=== PATIENT | male | born 1940 | race Caucasian/White ===

== ENCOUNTER 2017-03-18 11:47 | Outpatient (CLI) | payer MEDICARE ==
[2017-03-18 13:32] LABS: INR 2.24 (0.87-1.13); PROTHROMBIN TIME 23.5 SECS (9.5-12.7)
== END 2017-03-18 23:59 | disposition home or self-care (01) ==
LOC: LAB 11:47
DX: Z79.01 Long term (current) use of anticoagulants (principal)
CPT/HCPCS: 36415; 85610-TC

== ENCOUNTER 2019-05-29 18:18 | Emergency (ER) | payer MEDICARE ==
[~2019-05-29] VITALS: Ht 170.2 cm; Wt 81.2 kg
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
[2019-05-29 18:44] LABS: BASOPHILS # (AUTO) 0.1 /CMM (0.0-0.2); BASOPHILS % (AUTO) 1.8 % (0.0-2.0); EOSINOPHILS % (AUTO) 3.1 % (0.0-6.0); HEMATOCRIT 44 % (39-51); LYMPHOCYTES # (AUTO) 1.7 /CMM (0.8-4.8); MEAN CORPUSCULAR HGB CONC 34 g/dl (31.0-36.0); MEAN CORPUSCULAR VOLUME 93 fL (80-96); MONOCYTES # (AUTO) 0.4 /CMM (0.1-1.30); MONOCYTES % (AUTO) 5.6 % (2.0-12.0); NEUTROPHILS # (AUTO) 4.2 /CMM (1.8-8.9); NEUTROPHILS % (AUTO) 63.5 % (43.0-81.0); PLATELET COUNT (AUTO) 191 /CMM (150-450); RED BLOOD CELL COUNT(AUTO) 4.74 MIL/uL (4.5-6.0); WHITE BLOOD COUNT (AUTO) 6.6 K/uL (4.3-11.0)
[2019-05-29 18:51] LABS: CALCIUM, SERUM 9.3 mg/dL (8.5-10.1); CREATININE 1.3 mg/dL (0.6-1.3); POTASSIUM 3.9 mmol/L (3.5-5.1)
--- NOTE | 2019-05-29 18:57 | NUR ---
patient taken to ct.
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
[2019-05-29] MEDS ORDERED: ONDANSETRON HCL/PF 4 MG/2 ML VIAL ONE (20:06)
[2019-05-29] MEDS ORDERED: MORPHINE SULFATE INJ 2 MG/ML DISP.SYRIN ONE (20:06)
--- NOTE | 2019-05-29 20:10 | NUR ---
pt refused morphine and asking for tylenol . made aware. awaiting for order
[2019-05-29] MEDS ORDERED: ONDANSETRON HCL/PF - ER 4 MG/2 ML VIAL IV ONE (20:30)
[2019-05-29] MEDS ORDERED: MORPHINE SULFATE INJ 2 MG/ML DISP.SYRIN IV ONE (20:30)
[2019-05-29] MEDS ORDERED: PROTHROMBIN COMPLEX CONCENTR 500 UNIT VIAL IV ONE (21:30)
[2019-05-29] MEDS ORDERED: PHYTONADIONE INJ 10 MG in IV NS 0.9% 50 ML IV ONE (21:30)
[2019-05-29] MEDS ORDERED: PHYTONADIONE INJ 10 MG/1 ML AMPUL ONE ×2 (21:36→21:40)
--- NOTE | 2019-05-29 21:50 | NUR ---
[facility].
--- NOTE | 2019-05-29 21:50 | NUR ---
PIV 18G STARTED ON RAC. VIT K ADMINISTERED ORDERED. END TIME: 2219
[2019-05-29] MEDS ORDERED: LEVETIRACETAM (500MG) 1,000 MG in IV NS 0.9% 100 ML IV SCH (22:00)
--- NOTE | 2019-05-29 22:02 | NUR ---
Pt accepted to [facility] by Dr. Pabon. Room 8S26. # for report [phone].
[2019-05-29] MEDS ORDERED: LEVETIRACETAM (500MG) 500 MG/5 ML VIAL IV ONE (22:03)
--- NOTE | 2019-05-29 22:15 | NUR ---
DR. RIBERA AT THE BED SIDE
--- NOTE | 2019-05-29 22:32 | NUR ---
CALLED [facility] FOR ALS TRANSPORT WILL CALL.
--- NOTE | 2019-05-29 22:38 | NUR ---
SECOND IV LINE STARTED ON LFA 18G W/ GOOD BLOOD DRAW
[2019-05-29] MEDS ORDERED: PROTHROMBIN COMPLEX CONCENTR IV ONE (23:00)
[2019-05-29] MEDS ORDERED: WATER FOR INJECTION STERILE IV ONE (23:00)
--- NOTE | 2019-05-29 23:09 | NUR ---
CALLED [facility] FOR TRANSPORT. ETA [phone]
--- NOTE | 2019-05-29 23:17 | NUR ---
[facility] STARTED AT THE RATE OF 480ML/ HR END TIME: 9755
--- NOTE | 2019-05-29 23:24 | NUR ---
PT ON ONGOING [facility] INFUSION. NO A/R NOTED. PT REMAINED ON ONGOING HEART MONITORING ,. VSS
--- NOTE | 2019-05-29 23:30 | NUR ---
PT COMPLETED THE [facility] INFUSION W/ NO A/R. WILL CONT TO MONITOR,
[2019-05-29 23:39] VITALS: BP 146/77
--- NOTE | 2019-05-29 23:46 | NUR ---
REPORT GIVEN TO naturopathic oncology provider AND Wilbur AT [facility].
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
== END 2019-05-29 23:56 | disposition short-term general hospital (02) ==
LOC: ER 18:21
DX: S12.121A Other nondisplaced dens fracture, initial encounter for closed fracture (principal); I60.9 Nontraumatic subarachnoid hemorrhage, unspecified; I48.91 Unspecified atrial fibrillation; I10 Essential (primary) hypertension; E78.5 Hyperlipidemia, unspecified; J45.909 Unspecified asthma, uncomplicated; Z98.890 Other specified postprocedural states; Z95.0 Presence of cardiac pacemaker; Z88.1 Allergy status to other antibiotic agents; Z88.8 Allergy status to other drugs, medicaments and biological substances; W18.39XA Other fall on same level, initial encounter; Y93.89 Activity, other specified; Y92.89 Other specified places as the place of occurrence of the external cause; Y99.8 Other external cause status
CPT/HCPCS: 36415; 70450; 72125; 80048; 85025; 85730; 93005; 96365; 96367; 96375; 99291; A4216 ×2; A4217; C9132; J1953 ×2; J2270; J2405; J3430 ×2; J7030 ×3

== ENCOUNTER 2019-06-14 10:24 | Outpatient (CLI) | payer MEDICARE | END 2019-06-14 23:59 | disposition home or self-care (01) | LOC: RAD 10:24 | DX: S12.100D Unspecified displaced fracture of second cervical vertebra, subsequent encounter for fracture with routine healing (principal); M50.322 Other cervical disc degeneration at C5-C6 level; M46.02 Spinal enthesopathy, cervical region; M85.88 Other specified disorders of bone density and structure, other site; Z98.890 Other specified postprocedural states; X58.XXXD Exposure to other specified factors, subsequent encounter | CPT/HCPCS: 72040-TC ==

== ENCOUNTER 2022-10-24 21:19 | Inpatient (IN) | payer MEDICARE ==
[~2022-10-24] VITALS: Ht 167.6 cm; Wt 78.0 kg
[2022-10-24 21:39] LABS: BASOPHILS # (AUTO) 0.1 K/uL (0.0-0.2); BASOPHILS % (AUTO) 0.9 % (0.0-2.0); EOSINOPHILS # (AUTO) 0.2 K/uL (0.0-0.7); EOSINOPHILS % (AUTO) 3.2 % (0.0-6.0); HEMATOCRIT 41 % (39-51); HEMOGLOBIN 13.8 g/dL (13.5-17.5); LYMPHOCYTES # (AUTO) 1.8 K/uL (0.8-4.8); LYMPHOCYTES % (AUTO) 24.9 % (20.0-44.0); MEAN CORPUSCULAR HEMOGLOBIN 32 PG (26.0-33.0); MEAN CORPUSCULAR HGB CONC 34 g/dl (31.0-36.0); MEAN CORPUSCULAR VOLUME 94 fL (80-96); MONOCYTES # (AUTO) 0.4 K/uL (0.1-1.30); MONOCYTES % (AUTO) 5.4 % (2.0-12.0); NEUTROPHILS # (AUTO) 4.8 K/uL (1.8-8.9); NEUTROPHILS % (AUTO) 65.6 % (43.0-81.0); PLATELET COUNT (AUTO) 142 K/uL (150-450); RED BLOOD CELL COUNT(AUTO) 4.36 MIL/uL (4.5-6.0); RED CELL DISTRIBUTION WIDTH 14.1 % (11.5-15.0); WHITE BLOOD COUNT (AUTO) 7.3 K/uL (4.3-11.0)
[2022-10-24] MEDS ORDERED: IOHEXOL-350 100 ML VIAL IV ONE (21:46)
[2022-10-24] MEDS ORDERED: IV NS 0.9% 250 ML IV ONE (21:47)
[2022-10-24] MEDS ORDERED: CT SWABBABLE VALVE TRANS SET 1 EA INFUS.SET MC ONE (21:47)
[2022-10-24 21:48] LABS: CALCIUM, SERUM 9.3 mg/dL (8.5-10.1); CARBON DIOXIDE 26 mmol/L (21-32); CHLORIDE 103 mmol/L (98-107); CREATININE 1.2 mg/dL (0.6-1.3); GLUCOSE 155 mg/dL (74-106); POTASSIUM 3.9 mmol/L (3.5-5.1); SODIUM SERUM 139 mmol/L (136-145); UREA NITROGEN, BLOOD 26 mg/dL (7-18)
[2022-10-24 23:22] LABS: INR 1.05 (0.91-1.10); PARTIAL THROMBOPLASTIN TIME 25.7 SEC (24.3-34.3); PROTHROMBIN TIME 11.2 SECS (9.2-11.1)
[2022-10-25] VITALS (7 sets, daily range): BP systolic 117–144; BP diastolic 59–69; TEMP 97.8–98.6; O2SAT 93–96
[2022-10-25] MEDS ORDERED: FURO20TA4 PO (04:32)
[2022-10-25] MEDS ORDERED: DILT240C88 PO (04:32)
[2022-10-25] MEDS ORDERED: AMOX500C2 PO ×2 (04:32→08:06)
[2022-10-25] MEDS ORDERED: LEVE500T9 PO ×2 (04:32→08:06)
[2022-10-25] MEDS ORDERED: LACT1CAP63 PO (04:32)
[2022-10-25] MEDS ORDERED: CYAN250010 PO (04:32)
[2022-10-25] MEDS: BLOOD SUGAR DIAGNOSTIC 1 EACH STRIP IN SCH ×4 (06:39→21:47)
[2022-10-25] MEDS ORDERED: FURO-145 PO (08:06)
[2022-10-25] MEDS ORDERED: DILT-4 PO (08:06)
[2022-10-25] MEDS ORDERED: LACT1CAP89 PO (08:06)
[2022-10-25] MEDS ORDERED: LORA10TA7 PO (08:06)
[2022-10-25] MEDS ORDERED: APIX5TAB PO (08:06)
[2022-10-25] MEDS ORDERED: CYAN500T9 PO (08:06)
[2022-10-25] MEDS ORDERED: SIME125C81 PO (08:06)
[2022-10-25] MEDS ORDERED: POTA10TA21 PO (08:11)
[2022-10-25] MEDS ORDERED: ASPIRIN 81 MG TAB.CHEW PO SCH (09:00)
[2022-10-25] MEDS: APIXABAN 5 MG TABLET PO SCH ×2 (09:16→20:47)
[2022-10-25 16:20] LABS: BASOPHILS # (AUTO) 0.1 K/uL (0.0-0.2); EOSINOPHILS # (AUTO) 0.1 K/uL (0.0-0.7); HEMATOCRIT 41 % (39-51); HEMOGLOBIN 13.9 g/dL (13.5-17.5); LYMPHOCYTES # (AUTO) 1.6 K/uL (0.8-4.8); MEAN CORPUSCULAR HEMOGLOBIN 32 PG (26.0-33.0); MEAN CORPUSCULAR HGB CONC 34 g/dl (31.0-36.0); MEAN CORPUSCULAR VOLUME 93 fL (80-96); MONOCYTES # (AUTO) 0.4 K/uL (0.1-1.30); MONOCYTES % (AUTO) 5.8 % (2.0-12.0); NEUTROPHILS # (AUTO) 4.7 K/uL (1.8-8.9); NEUTROPHILS % (AUTO) 68.2 % (43.0-81.0); PLATELET COUNT (AUTO) 137 K/uL (150-450); RED BLOOD CELL COUNT(AUTO) 4.41 MIL/uL (4.5-6.0); RED CELL DISTRIBUTION WIDTH 13.8 % (11.5-15.0); WHITE BLOOD COUNT (AUTO) 6.9 K/uL (4.3-11.0)
[2022-10-25 16:42] LABS: CALCIUM, SERUM 9.3 mg/dL (8.5-10.1); CREATININE 1.2 mg/dL (0.6-1.3); POTASSIUM 4.1 mmol/L (3.5-5.1)
[2022-10-25 16:48] LABS: CHOLESTEROL 206 mg/dL (<200); HDL CHOLESTEROL 49 mg/dL (40-60); LDL 134 mg/dL (0-99); TRIGLYCERIDES 67 mg/dL (30-150)
[2022-10-25] MEDS: SIMVASTATIN 20 MG TABLET PO SCH ×2 (21:41→21:47)
[2022-10-25] MEDS ORDERED: ATORVASTATIN 10 MG TABLET PO SCH (22:00)
== END 2022-10-25 23:55 | disposition short-term general hospital (02) | DRG 69 ==
LOC: ER 21:22 → TELE 10-25 01:02
DX: G45.9 Transient cerebral ischemic attack, unspecified (principal); D68.69 Other thrombophilia; R47.01 Aphasia; N17.9 Acute kidney failure, unspecified; I10 Essential (primary) hypertension; E78.5 Hyperlipidemia, unspecified; I48.91 Unspecified atrial fibrillation; J45.909 Unspecified asthma, uncomplicated; Z79.01 Long term (current) use of anticoagulants; Z86.73 Personal history of transient ischemic attack (TIA), and cerebral infarction without residual deficits; R29.702 NIHSS score 2; Z95.0 Presence of cardiac pacemaker
CPT/HCPCS: 36415; 70450-TC; 70496-TC; 70498-TC; 71045-TC; 80048-TC; 80061-TC; 82962-TC; 84484-TC; 85025-TC; 85730-TC; 93307-TC; G0378; J7050; Q9967